=== PATIENT | female | born 1985 | race Caucasian/White ===

== ENCOUNTER 2016-08-01 22:41 | Day surgery (SDC) | payer BC ==
[2016-08-01] MEDS ORDERED: NS 0.9% 1000 ML* 1,000 ML IV ONE (23:51)
[2016-08-02 00:20] LABS: ALT 51 U/L (7-52); AST 22 U/L (13-39); Albumin 4.1 g/dL (3.2-5.2); Alkaline Phosphatase 69 U/L (34-104); Anion Gap 7 mmol/L (2-11); BUN/Creatinine Ratio 22.1 (8-20); Blood Urea Nitrogen 17 mg/dL (6-24); CO2 Carbon Dioxide 26 mmol/L (22-32); Calcium 9.1 mg/dL (8.6-10.3); Chloride 106 mmol/L (101-111); EGFR African American 112.4 (>60); EGFR Non-African American 87.4 (>60); Globulin 3.1 g/dL (2-4); Glucose 105 mg/dL (70-100); Lipase 14 U/L (11.0-82.0); Potassium 4.2 mmol/L (3.5-5.0); Sodium 139 mmol/L (133-145); Total Protein 7.2 g/dL (6.4-8.9)
[2016-08-02] MEDS ORDERED: Iohexol 300* (CONTRAST) 10 ML SDV IV ONE (00:40)
[2016-08-02 00:46] LABS: Hematocrit 40 % (35-47); Hemoglobin 13.3 g/dl (12.0-16.0); Mean Corpuscular HGB Conc 33 g/dl (31-36); Mean Corpuscular Hemoglobin 30 pg (27-31); Mean Corpuscular Volume 89 fL (80-97); Mean Platelet Volume 7 um3 (7.4-10.4); Red Blood Count 4.51 10^6/ul (4.0-5.4); Red Cell Distribution Width 13 % (10.5-15); White Blood Count 14.7 10^3/ul (3.5-10.8)
[2016-08-02] MEDS ORDERED: Ertapenem* 1 GM in NS 0.9% 50 ML* 50 ML IVPB ONE (03:13)
[2016-08-02] MEDS ORDERED: Morphine INJ* 4 MG/ML 1 ML CARPUJECT IV ONE (03:14)
[2016-08-02] MEDS ORDERED: Ondansetron INJ* 2 MG/ML VIAL IV ONE (03:14)
[2016-08-02] MEDS ORDERED: NS 0.9% 50 ML* 100 ML ONE (03:28)
--- NOTE | 2016-08-02 03:31 | ED ---
Destin Dillard Aidan, scribed for Melinda Razouel on 08/01/16 at 2356 . Abdominal Pain/Female - HPI Summary HPI Summary: 30 y/o female presents to the ED with a complaint of acute, constant, moderate ( 5/10), right-sided abdominal pain that began at 1700 today. Pt denies any vomiting. She recently was , had a sea-section 2 months ago, and should be getting her next period again soon. - History of Current Complaint Chief Complaint: EDAbdPain Stated Complaint: RIGHT SIDE ABD PAIN Hx Obtained From: Patient, Family/Manager Assessment ?: No Onset/Duration: Sudden Onset, Lasting Hours - began at 1700 today, Still Present Timing: Constant Severity Initially: Moderate Severity Currently: Moderate Pain Intensity: 5 Pain Scale Used: 0-10 Numeric Location: Discrete At: RUQ, Discrete At: RLQ Radiates: No Character: Other: - not described Aggravating Factor(s): Other: - unknown, however, her RLQ was tender to palpation Alleviating Factor(s): Other: - unknown Associated Signs and Symptoms: Positive: Negative - Risk Factors Ovarian Torsion Risk Factor: Reproductive Age Allergies/Adverse Reactions: Allergies Allergy/AdvReac Type Severity Reaction Status Date / Time No Known Allergies Allergy Verified 05/16/16 01:45 PMH/Surg Hx/FS Hx/Imm Hx Infectious Disease History: No Infectious Disease History: Denies: Traveled Outside the [place] in Last 30 Days - Family History Known Family History: Negative: Diabetes - Social History Occupation: Employed Full-time Lives: With Family Alcohol Use: None Substance Use Type: Reports: None Smoking Status (MU): Never Smoked Tobacco Review of Systems Constitutional: Negative Eyes: Negative ENT: Negative Cardiovascular: Negative Respiratory: Negative Positive: Abdominal Pain Genitourinary: Negative Musculoskeletal: Negative Skin: Negative Neurological: Negative Psychological: Normal All Other Systems Reviewed And Are Negative: Yes Physical Exam Triage Information Reviewed: Yes Vital Signs On Initial Exam: Initial Vitals Temp Pulse Resp BP Pulse Ox 98.1 F 90 16 147/85 100 08/01/16 22:42 08/01/16 22:42 08/01/16 22:42 08/01/16 22:42 08/01/16 22:42 Vital Signs Reviewed: Yes Appearance: Positive: Well-Appearing, No Pain Distress Skin: Positive: Warm, Skin Color Reflects Adequate Perfusion, Dry Head/Face: Positive: Normal Head/Face Inspection Eyes: Positive: EOMI, LISSETH ENT: Positive: Normal ENT inspection Neck: Positive: Supple, Nontender Respiratory/Lung Sounds: Positive: Clear to Auscultation, Breath Sounds Present Cardiovascular: Positive: RRR, Pulses are Symmetrical in both Upper and Lower Extremities Abdomen Description: Positive: Soft. Negative: Nontender - tenderness in the RLQ Bowel Sounds: Positive: Present Musculoskeletal: Positive: Strength/ROM Intact Neurological: Positive: Sensory/Motor Intact, Alert, Oriented to Person Place, Time Psychiatric: Positive: Affect/Mood Appropriate AVPU Assessment: Alert Diagnostics - Vital Signs Vital Signs Temp Pulse Resp BP Pulse Ox 08/01/16 22:42 98.1 F 90 16 147/85 100 - Laboratory Lab Results: Lab Results 08/01/16 08/01/16 Range/Units 23:50 23:50 WBC 14.7 H (3.5-10.8) 10^3/ul RBC 4.51 (4.0-5.4) 10^6/ul Hgb 13.3 (12.0-16.0) g/dl Hct 40 (35-47) % MCV 89 (80-97) fL MCH 30 (27-31) pg MCHC 33 (31-36) g/dl RDW 13 (10.5-15) % Plt Count 280 (150-450) 10^3/ul MPV 7 L (7.4-10.4) um3 Neut % (Auto) 84.1 H (38-83) % Lymph % (Auto) 8.9 L (25-47) % [place] % (Auto) 4.6 (1-9) % Eos % (Auto) 1.8 (0-6) % Baso % (Auto) 0.6 (0-2) % Absolute Neuts (auto) 12.4 H (1.5-7.7) 10^3/ul Absolute Lymphs (auto) 1.3 (1.0-4.8) 10^3/ul Absolute Monos (auto) 0.7 (0-0.8) 10^3/ul Absolute Eos (auto) 0.3 (0-0.6) 10^3/ul Absolute Basos (auto) 0.1 (0-0.2) 10^3/ul Absolute Nucleated RBC 0.01 10^3/ul Nucleated RBC % 0.1 Sodium 139 (133-145) mmol/L Potassium 4.2 (3.5-5.0) mmol/L Chloride 106 (101-111) mmol/L Carbon Dioxide 26 (22-32) mmol/L Anion Gap 7 (2-11) mmol/L BUN 17 (6-24) mg/dL Creatinine 0.77 (0.51-0.95) mg/dL Est GFR ( Amer) 112.4 (>60) Est GFR (Non-Af Amer) 87.4 (>60) BUN/Creatinine Ratio 22.1 H (8-20) Glucose 105 H (70-100) mg/dL Calcium 9.1 (8.6-10.3) mg/dL Total Bilirubin 0.80 (0.2-1.0) mg/dL AST 22 (13-39) U/L ALT 51 (7-52) U/L Alkaline Phosphatase 69 (34-104) U/L Total Protein 7.2 (6.4-8.9) g/dL Albumin 4.1 (3.2-5.2) g/dL Globulin 3.1 (2-4) g/dL Albumin/Globulin Ratio 1.3 (1-3) Lipase 14 (11.0-82.0) U/L Beta HCG, Quant < 0.60 mIU/mL Result Diagrams: 08/01/16 23:50 08/01/16 23:50 Lab Statement: Any lab studies that have been ordered have been reviewed, and results considered in the medical decision making process. Abdominal Pain Fem Course/Dx - Course Course Of Treatment: This is a 30 y/o female with a complaint of right-sided abdominal pain that began today at 1700. She is tender in the RLQ. 2 months ago , she had a sea-section. - Diagnoses Provider Diagnoses: Appendicitis Discharge - Discharge Plan Condition: Good Disposition: ADMITTED TO [facility] Discharge Disposition Comment: Admit to surgery (Dr. Jeffries) Patient Education Materials: Appendicitis (GEN) Referrals: Tyrell Munoz MD [Primary Care Provider] - The documentation as recorded by the Destin lr Aidan accurately reflects the service I personally performed and the decisions made by , Jose Alejandro Razo.
[2016-08-02] MEDS ORDERED: Piperac/Tazob 3.375 gm in NS* 3.375 GM/100 ML BAG IVPB ONE (03:39)
[2016-08-02] MEDS ORDERED: HYDROmorphone INJ* 1 MG/ML CARPUJECT SYRINGE IV SLOW PU ONE (06:54)
--- NOTE | 2016-08-02 08:17 | RAD ---
INDICATION: Right lower quadrant abdominal pain evaluate for appendicitis. COMPARISON: There are no prior studies available for comparison. TECHNIQUE: A CT scan of the abdomen and pelvis was performed with intravenous and oral contrast following intravenous injection of 121 ml of Omnipaque 300 nonionic contrast. Contiguous axial sections were obtained from the lung bases through the symphysis pubis. Images were reconstructed in the coronal and sagittal planes. FINDINGS: There is mild dependent bilateral lower lobe subsegmental atelectasis. No pleural effusion is present. The liver and spleen are mildly enlarged. There liver is decreased in attenuation consistent with fatty infiltration with a more focal area of decreased density in the anterior portion of the left hepatic lobe most consistent with more focal fatty infiltration. No calcified gallstones are seen. The pancreas appears to be within normal limits. The kidneys and adrenal glands are normal in size. There is a solid enhancing mass present within the midportion of the right kidney measuring 2.0 cm in size. No other focal renal abnormalities are seen. The aorta is normal in caliber and demonstrates homogeneous contrast opacification. No significant enlarged retroperitoneal lymph nodes are seen. The stomach, small and large bowel appear nondistended. The appendix is dilated. There are multiple appendicoliths present. The appendix measures 1 cm in diameter. There is abnormal enhancement of the appendiceal wall and stranding in the adjacent mesenteric fat most consistent with acute appendicitis. No abscess is seen. There is a small periumbilical hernia containing fat. The uterus is retroverted and normal in size. There is a 3.1 cm left ovarian cyst. No free intraperitoneal air or fluid is seen. No significant focal osseous abnormality is seen. The results of this exam were called to Dr. Cutler. IMPRESSION: 1. FINDINGS CONSISTENT WITH ACUTE APPENDICITIS. 2. 2 CM RIGHT RENAL MASS, RECOMMEND UROLOGIC CONSULTATION. 3. MILD HEPATOSPLENOMEGALY AND HEPATIC STEATOSIS.
--- NOTE | 2016-08-02 08:34 | HP ---
CC: Dr. Jeffries; [facility]; Dr. Tyrell Munoz HISTORY AND PHYSICAL: DATE OF ADMISSION: 08/02/16 CHIEF COMPLAINT: Abdominal pain. HISTORY OF PRESENT ILLNESS: The patient is a 30-year-old female who started to have crampy abdomina l pain yesterday morning but then it became sharp in the evening and subsequently she presented to [facility] emergency room and the pain has been primarily right to mid lower abdomen. There has been no fev er, no chills, no nausea, no vomiting, no diarrhea. No blood in the stool or urine. There is no re cent accident, injury, or trauma. PAST MEDICAL HISTORY: Reveals section two months ago. Everything was uncomplicated and th e baby is doing well. MEDICATIONS: She is on no regular medications. ALLERGIES: Denies medical allergies. FAMILY HISTORY: Noncontributory. No chronic bowel problems. No bleeding tendencies or anesthesia r eactions. SOCIAL HISTORY: She is . Has a new baby. She is a nonsmoker. Does not use any drugs or il licit substances. 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 REVIEW OF SYSTEMS: Multisystem review is benign. No chest pain, heart pain, angina pain, no bronch itis, emphysema or other lung disease. No diabetes, thyroid, or other endocrine. No major GI histo ry, history, significant for the recent and delivery as noted above. She has no major neuromuscular or psych issues. PHYSICAL EXAMINATION GENERAL: She is well-developed, well-nourished, overweight female, consistent with stated age. VITAL SIGNS: Show temperature of 98.1, blood pressure 140/84, pulse 84 and regular, respirations 16 and unlabored. O2 saturation 98%. HEENT: Head and neck are unremarkable. NECK: Without any adenopathy or thyromegaly. LUNGS: Aerate well and easy without any difficulty. HEART: Regular. ABDOMEN: Obese and soft. There is a well healing Pfannenstiel incision. She has localized tendern ess and rebound to the right lower quadrant. No guarding, no Rovsing's sign, no palpable masses or hernias. EXTREMITIES: Well perfused without edema. SKIN: Warm and well perfused. She is not diaphoretic. She is not jaundiced. LABORATORY DATA: Laboratory studies revealed white blood count 14.7 with a slight left shift, hemo globin 13.3, platelets 280, and electrolytes and renal function, liver function are normal. HCG is negative. I have reviewed her CT scan which shows evidence of dilated appendix with periappendiceal inflammation and a fecalith at the base of the appendix consistent with early acute appendicitis. IMPRESSION: A 30-year-old female with evidence of early acute appendicitis and fecalith in the appe ndix. I discussed this with her and her parents and I recommend laparoscopic appendectomy. They understan d the procedure, the rationale, the risks and the expected recovery as well as alternatives to surge ry and agree to proceed in the fashion outlined, and we will proceed with laparoscopic appendectomy this morning. [id number]/[facility] #: [id number]
[2016-08-02] MEDS ORDERED: Bupivacaine 0.25% EPI 200,000* 30 ML SDV ONE (09:32)
[2016-08-02] MEDS ORDERED: ceFOXitin 2 GM IVPREMIX* 2 GM/50 ML BAG ONE (09:47)
[2016-08-02] MEDS ORDERED: Ondansetron INJ* 2 MG/ML VIAL IV PRN ×2 (09:49→11:01)
[2016-08-02] MEDS ORDERED: HYDROmorphone INJ* 1 MG/ML CARPUJECT SYRINGE IV SLOW PU PRN (09:49)
[2016-08-02] MEDS ORDERED: oxyCODONE/Acetamin 5/325 MG* TAB PO PRN ×2 (09:50→11:01)
[2016-08-02] MEDS ORDERED: Midazolam* 1 MG/ML 5 ML VIAL (5 MG) ONE (09:55)
[2016-08-02] MEDS ORDERED: Dexamethasone IV* 4 MG/ML 1 ML (4 MG) ONE (09:57)
[2016-08-02] MEDS ORDERED: Ondansetron INJ* 2 MG/ML VIAL ONE (09:57)
[2016-08-02] MEDS ORDERED: Succinylcholine* 20 MG/ML 10 ML VIAL ONE (09:57)
[2016-08-02] MEDS ORDERED: Ketorolac INJ* 30 MG/ML 1 ML VIAL ONE (09:57)
[2016-08-02] MEDS ORDERED: fentaNYL* 50 MCG/ML 2 ML VIAL (100 MCG VIAL) ONE (09:57)
[2016-08-02] MEDS ORDERED: Propofol* 10 MG/ML 20 ML BTL IV PUSH ONE (09:58)
[2016-08-02] MEDS ORDERED: Atracurium* 10 MG/ML 10 ML VIAL ONE (09:58)
[2016-08-02] MEDS ORDERED: Neostigmine Methylsulfate* 2 MG/2 ML SYRINGE ONE (10:41)
[2016-08-02] MEDS ORDERED: Glycopyrrolate IV* 0.2 MG/ML 1 ML VIAL ONE (10:41)
[2016-08-02 10:50] LABS: Urine Bacteria 1+ (Absent); Urine Bilirubin Negative (Negative); Urine Glucose Negative (Negative); Urine Nitrite Negative (Negative)
[2016-08-02] MEDS ORDERED: HYDROcodone/ACETAMIN 5-325 MG* 1 TAB PO PRN (11:01)
[2016-08-02] MEDS ORDERED: fentaNYL* 50 MCG/ML 2 ML VIAL (100 MCG VIAL) IV PRN (11:01)
[2016-08-02] MEDS ORDERED: DiMENhydriNATE IV* 50 MG/ML VIAL IV PUSH PRN (11:01)
[2016-08-02] MEDS ORDERED: HYDROmorphone INJ* 1 MG/ML CARPUJECT SYRINGE IV PRN (11:01)
[2016-08-02 11:45] VITALS: BP 101/62
[2016-08-02] MEDS ORDERED: oxyCODONE/Acetamin 5/325 MG* TAB ONE (11:47)
--- NOTE | 2016-08-03 01:04 | OP ---
DATE OF OPERATION: 08/02/16 - [facility] DATE OF : 83 SURGEON: Mario Jeffries MD FIRE EATER: None. ANESTHESIOLOGIST: Dr. Bentley. ANESTHESIA: General anesthetic, local infiltration. PRE-OP DIAGNOSIS: Appendicitis. POST-OP DIAGNOSIS: Appendicitis. OPERATIVE PROCEDURE: Laparoscopic appendectomy. DESCRIPTION OF PROCEDURE: The patient was supine on the operating table. After adequate general anesthetic, compression stockings, Hieu Hugger warmer, intravenous antibiotics, the abdomen was prepped with antiseptic and draped in a sterile fashion. Local infiltrate of anesthesia was administered. A small umbilical incision was created. Blunt port cannula was placed. Insufflation was carried out with carbon dioxide. Additional cannulae 5 mm left lower quadrant, left mid abdomen were placed through small stab wounds under direct vision. The cecum was rotated away from the pelvic side wall and the appendix was noted in the retrocecal position. It had suppurative changes. The base of the appendix was not inflamed. It was readily divided with a hudson load of an EndoGIA stapler. The mesoappendix was then divided using a LigaSure device. The appendix was placed in a retrieval bag and brought out through the umbilical site. Hemostasis was confirmed and there were no undrained collections or additional infection in the area. The cannula removed. Pneumoperitoneum was allowed to escape. Umbilical fascia was closed with 0 Polysorb and skin with 5-0 Polysorb and followed by Ster-Strips. She tolerated the procedure well and was brought to recovery in good condition. No complications. No drains. Pathologic specimen is appendix. Sponge, instrument counts correct. Estimated blood loss is less than 20 mL. CC: Mario Jeffries MD; Dr. Tyrell Munoz, [facility]. * [id number]/[facility] #: [id number] MTDD
== END 2016-08-02 10:14 | disposition home or self-care (01) ==
LOC: ED 22:41 → OR 08-02 10:14
PROVIDERS: ATTEND Surgery
DX: K35.80 Unspecified acute appendicitis (principal); E66.3 Overweight
CPT/HCPCS: 36415; 74177; 80053; 81003; 81015; 83690; 84702; 85025; 87086; 88304; 96374; 99283; A9270-GY; J0330; J0694; J1100; J1170; J1335; J1885; J2250; J2270; J2405; J2543; J2704; J3010; Q9967

== ENCOUNTER 2018-05-02 06:03 | Inpatient (IN) | payer BC ==
[2018-05-02] MEDS ORDERED: ceFOXitin 2 GM IVPREMIX* 2 GM/50 ML BAG ONE (06:32)
[2018-05-02] MEDS ORDERED: Sodium Citrate/Citric Acid* 15 ML UDC ONE (06:32)
[2018-05-02] MEDS ORDERED: Morphine PF AMP (0.5MG/ML)* 5 MG/10 ML AMP ONE (07:58)
[2018-05-02] MEDS ORDERED: Bupivacaine-MPF SPINAL* 7.5 MG/ML - 2ML AMP ONE (08:35)
[2018-05-02] MEDS ORDERED: Lidocaine 2% PF * 5 ML VIAL ONE (08:36)
[2018-05-02] MEDS ORDERED: Phenylephrine IV* 40 MCG/ML 10 ML SYRINGE ONE (08:36)
[2018-05-02] MEDS ORDERED: EPHEDrine (Pressors)* 50 MG/ML VIAL ONE (08:36)
[2018-05-02] MEDS ORDERED: OXYTOCIN* 10 UNITS/ML 1 ML VIAL ONE (08:46)
[2018-05-02] MEDS ORDERED: fentaNYL* 50 MCG/ML 2 ML VIAL (100 MCG VIAL) IV PRN (09:00)
[2018-05-02] MEDS ORDERED: Ondansetron INJ* 2 MG/ML VIAL IV PRN ×2 (09:00→09:01)
[2018-05-02] MEDS ORDERED: Naloxone* 0.4 MG/ML 1 ML VIAL IV PRN ×2 (09:00→09:01)
[2018-05-02] MEDS ORDERED: Scopolamine 1.5 mg* PATCH TRANSDERM PRN (09:01)
[2018-05-02] MEDS ORDERED: diPHENhydraMINE IV* 50 MG/ML 1 ml VIAL (BENADRYL) IV PRN (09:01)
[2018-05-02] MEDS ORDERED: DiMENhydriNATE IV* 50 MG/ML VIAL IV PUSH PRN (09:01)
[2018-05-02] MEDS ORDERED: Nalbuphine* 10 MG/ML 1 ML VIAL IV PRN (09:01)
[2018-05-02] MEDS ORDERED: oxyCODONE/Acetamin 5/325 MG* TAB PO PRN (09:01)
[2018-05-02] MEDS ORDERED: Ketorolac INJ* 30 MG/ML 1 ML VIAL ONE (09:20)
[2018-05-02] MEDS ORDERED: Witch Hazel PAD* JAR TOPICAL PRN (09:59)
[2018-05-02] MEDS ORDERED: Oxytocin in LR* 20 UNITS/1,000 ML BAG IVPB ONE (10:04)
[2018-05-02] MEDS: Simethicone TAB* 80 MG TAB.CHEW PO SCH ×3 (15:41→20:19)
[2018-05-02] MEDS: Docusate CAP* 100 MG PO SCH ×2 (15:41→20:19)
[2018-05-02] MEDS: Ketorolac INJ* 30 MG/ML 1 ML VIAL IV PRN ×2 (15:48→23:44)
[2018-05-02] MEDS: Enoxaparin(*) 40 MG/0.4 ML SYR SUBCUT SCH (20:19)
[2018-05-03] MEDS ORDERED: oxyCODONE/Acetamin 5/325 MG* TAB PO PRN
[2018-05-03] MEDS ORDERED: Acetaminophen TAB* 325 MG PO PRN
[2018-05-03] MEDS: oxyCODONE/Acetamin 5/325 MG* TAB PO PRN ×3 (02:51→17:53)
[2018-05-03 07:03] LABS: ABS Basophils 0.1 10^3/ul (0-0.2); ABS Eosinophils 0.1 10^3/ul (0-0.6); ABS Lymphocytes 1.3 10^3/ul (1.0-4.8); ABS Monocytes 0.5 10^3/ul (0-0.8); ABS Neutrophils 4.9 10^3/ul (1.5-7.7); ABS Nucleated RBC 0 10^3/ul; Eosinophil % 1.9 % (0-6); Hematocrit 32 % (35-47); Hemoglobin 10.9 g/dl (12.0-16.0); Lymphocyte % 18.9 % (25-47); Mean Corpuscular HGB Conc 34 g/dl (31-36); Mean Corpuscular Hemoglobin 30 pg (27-31); Mean Corpuscular Volume 89 fL (80-97); Mean Platelet Volume 8.3 um3 (7.4-10.4); Nucleated Red Blood Cells % 0; Platelet Count 161 10^3/ul (150-450); Red Blood Count 3.62 10^6/ul (4.00-5.40); Red Cell Distribution Width 14 % (10.5-15); White Blood Count 6.8 10^3/ul (3.5-10.8)
[2018-05-03] MEDS: Docusate CAP* 100 MG PO SCH ×3 (08:16→20:33)
[2018-05-03] MEDS: Simethicone TAB* 80 MG TAB.CHEW PO SCH ×4 (08:16→20:33)
[2018-05-03] MEDS: Ibuprofen TAB* 600 MG PO PRN ×3 (08:16→20:33)
[2018-05-03] MEDS ORDERED: Ferrous Gluconate TAB* 324 MG TAB PO SCH (09:00)
--- NOTE | 2018-05-03 09:41 | OP ---
DATE OF OPERATION: 05/02/18 - ROOM #117 DATE OF : [birth year] SURGEON: Ernestina Spann MD FOREST MANAGEMENT PROFESSOR: Anca Crawford CNM ANESTHESIOLOGIST: Dr. Bentley. ANESTHESIA: Spinal. PRE-OP DIAGNOSIS: 39 weeks gestation with history of previous and morbid obesity. POST-OP DIAGNOSIS: 39 weeks gestation with history of previous and morbid obesity. OPERATIVE PROCEDURE: Repeat low transverse section. INDICATIONS: This patient is a 32-year-old 2, para 1, who presented today for a scheduled repeat section. She was extensively counseled and consent was signed. FINDINGS: Normal-appearing uterus, fallopian tubes, and ovaries. Delivery is productive of a 7 pounds 1 ounce male infant with Apgars of 9 and 9. Time of delivery was 0856. Due to the shape of the uterus, it could not be exteriorized. ESTIMATED BLOOD LOSS: 800 cc. URINE OUTPUT: 350 cc. IV FLUIDS: 2900 cc Lactated Ringer's. MATERIALS TO LAB: Cord blood. COMPLICATIONS: None. DESCRIPTION OF PROCEDURE: The risks, benefits, and alternatives were described to the patient, and informed consent was obtained. The patient was taken to the operating room with IV running, where spinal anesthesia was induced and found to be adequate. The patient was prepped and draped in normal sterile fashion in the dorsal supine position with a leftward tilt. A Pfannenstiel skin incision was made with a scalpel through the patient's previous incision. This was carried down to the underlying fascia using the scalpel. The fascia was scored in the midline, and the incision was extended using Mednoza scissors. The fascia was dissected off the underlying rectus muscles using blunt and sharp dissection. The rectus muscles were in the midline using dissection with a Wanda clamp. The peritoneum was then entered bluntly. A bladder blade was placed. A bladder flap was created sharply using Metzenbaum scissors. A low transverse uterine incision was then made with the scalpel. This was carried down to the amniotic membranes. The membranes were then ruptured, productive of clear fluid. The uterine incision was extended using blunt traction. The head was elevated to the level of the incision, and, with fundal pressure, the head delivered without difficulty. The shoulders then were also both delivered and the body followed. The infant had excellent tone and cried immediately on delivery. The cord was doubly clamped and cut. The infant was then handed to the awaiting entry level staff accountant. Cord blood was collected. The placenta was delivered with manual extraction. The uterus was then exteriorized and cleared of all clots and debris. The uterine incision was then reapproximated using 0 Polysorb in a running-locked fashion. A second layer of imbricating 0 Polysorb sutures was then also placed for good hemostasis. The posterior cul-de-sac was irrigated with saline. The uterus was then returned to the abdomen. The incision was reinspected and still noted to be hemostatic. The peritoneum was closed with 2-0 chromic in a running fashion. The fascia was closed with 0 Polysorb in a running fashion. The subcutaneous tissues were copiously irrigated and made hemostatic using the Bovie. The subcutaneous tissues were then reapproximated using 2-0 chromic in interrupted sutures. The skin was then closed with . A sterile bandage was then placed over the incision. The patient tolerated the procedure well. Sponge, lap, and needle counts were correct x2. [id number]/[facility] #: [id number] [facility] CENTER[facility]aimie
[2018-05-03] MEDS: Enoxaparin(*) 40 MG/0.4 ML SYR SUBCUT SCH (20:23)
[2018-05-04] MEDS: oxyCODONE/Acetamin 5/325 MG* TAB PO PRN ×2 (00:58→08:11)
[2018-05-04] MEDS: Ibuprofen TAB* 600 MG PO PRN (06:51)
[2018-05-04] MEDS: Simethicone TAB* 80 MG TAB.CHEW PO SCH (08:11)
[2018-05-04] MEDS: Docusate CAP* 100 MG PO SCH (08:12)
[2018-05-04 08:38] VITALS: BP 122/64
[2018-05-05] MEDS ORDERED: Scopolamine PATCH Remove* 1 NOTE MISC PATCH OFF PRN (09:02)
== END 2018-05-04 12:20 | disposition home or self-care (01) | DRG 540 ==
LOC: MCHOB 06:03
PROVIDERS: ADMIT Obstetrics & Gynecology; ATTEND Obstetrics & Gynecology
PROC: 10D00Z1 Extraction of Products of Conception, Low, Open Approach (ICD-10-PCS; principal; 2018-05-02 07:45)
DX: O34.211 Maternal care for low transverse scar from previous cesarean delivery (principal); Z68.41 Body mass index [BMI] 40.0-44.9, adult; O99.214 Obesity complicating childbirth; E66.01 Morbid (severe) obesity due to excess calories; Z3A.39 39 weeks gestation of pregnancy; Z37.0 Single live birth
CPT/HCPCS: 36415; 85025; A9270-GY; J0694; J1200; J1240; J1650; J1885; J2590

== ENCOUNTER 2023-01-14 05:30 | Inpatient (IN) ==
[2023-01-14] MEDS ORDERED: Sodium Citrate/Citric Acid LIQ 15 ML UDC PO ONE (06:00)
[2023-01-14] MEDS ORDERED: ceFOXitin 3 GM in NS 0.9% 100 ml BAG 100 ML IVPB ONE (06:00)
[2023-01-14] MEDS ORDERED: Lactated Ringers 1000 ml BAG 1,000 ML IV ONE (06:00)
[2023-01-14] MEDS ORDERED: Lactated Ringers 1000 ml BAG 1,000 ML IV SCH ×3 (06:00→10:00)
[2023-01-14] MEDS ORDERED: Buffered Lidocaine 1% SYRIN 1 ml INTRADERM ONE ×2 (06:00)
[2023-01-14 06:36] LABS: ABS Basophils 0.1 10^3/uL (0.0-0.1); ABS Eosinophils 0.1 10^3/uL (0.0-0.5); ABS Lymphocytes 1.5 10^3/uL (1.0-4.8); ABS Monocytes 0.5 10^3/uL (0.0-0.9); ABS Neutrophils 5.1 10^3/uL (1.5-7.6); Hemoglobin 12.6 g/dL (11.5-14.3); Lymphocyte % 20.6 %; Mean Corpuscular Hemoglobin 30.8 pg (27-33); Mean Corpuscular Hgb Conc 34.2 g/dL (31-36); Mean Platelet Volume 9.1 fL (7.5-11.2); Nucleated Red Blood Cells % 0.1 /100 WBC (0.0-0.4); Platelet Count 188 10^3/uL (150-450); Red Blood Count 4.11 10^6/uL (3.63-4.92); Red Cell Distribution Width 13.9 % (12-17); White Blood Count 7.2 10^3/uL (3.8-11.8)
[2023-01-14] MEDS ORDERED: Oxytocin 10 UNITS/ML 1 ML VIAL ONE (07:40)
[2023-01-14] MEDS ORDERED: Morphine PF AMP (0.5MG/ML) 5 MG/10 ML AMP ONE (07:40)
[2023-01-14] MEDS ORDERED: Acetaminophen IV 1 GM/100ML 1,000 MG/100 ML BAG IV ONE (07:40)
[2023-01-14] MEDS: Oxytocin in LR 20,000 MILLI.UNIT/1,000 ML BAG IV SCH ×2 (08:50→13:03)
[2023-01-14 09:00] LABS: Urine Appearance Clear; Urine Bilirubin Negative (Negative); Urine Blood 1+ (Negative); Urine Color Straw; Urine Glucose Negative (Negative); Urine Ketones Trace (Negative); Urine Nitrite Negative (Negative); Urine Protein Negative (Negative); Urine Specific Gravity 1.006 (1.002-1.030); Urine Urobilinogen Negative (Negative)
[2023-01-14 09:02] LABS: Urine Bacteria Absent (Absent); Urine Red Blood Cell Trace(0-2/hpf) (Absent); Urine White Blood Cell Trace(0-5/hpf) (Absent)
[2023-01-14 09:13] LABS: Urine Benzodiazepine Screen None Detected (None Detect); Urine Cannabinoids Screen None Detected (None Detect); Urine Opiates Screen None Detected (None Detect)
[2023-01-14] MEDS ORDERED: Witch Hazel PAD JAR TOPICAL PRN (09:38)
[2023-01-14] MEDS ORDERED: Glycerin ADULT 2.4 gm SUPP PR PRN (09:38)
[2023-01-14] MEDS ORDERED: Dibucaine 1% OINT 28.35 GM TUBE PR PRN (09:38)
[2023-01-14] MEDS ORDERED: Acetaminophen IV 1 GM/100ML 1,000 MG/100 ML BAG IV PRN (09:39)
[2023-01-14] MEDS ORDERED: Metoclopramide 5 MG/ML VIAL (10 mg) IV PRN (09:39)
[2023-01-14] MEDS ORDERED: Ondansetron 4 mg VIAL 2 MG/ML 2 ml VIAL IV PRN (09:39)
[2023-01-14] MEDS ORDERED: Naloxone 0.4 mg VIAL 0.4 mg/ml 1 ml VIAL IV PUSH PRN (09:39)
[2023-01-15 07:01] LABS: ABS Eosinophils 0.1 10^3/uL (0.0-0.5); ABS Lymphocytes 0.9 10^3/uL (1.0-4.8); ABS Monocytes 0.5 10^3/uL (0.0-0.9); ABS Neutrophils 7.2 10^3/uL (1.5-7.6); Eosinophil % 1.3 %; Hematocrit 31.8 % (35-45); Hemoglobin 10.9 g/dL (11.5-14.3); Lymphocyte % 10.3 %; Mean Corpuscular Hemoglobin 31.4 pg (27-33); Mean Corpuscular Hgb Conc 34.4 g/dL (31-36); Mean Corpuscular Volume 91.4 fL (80-97); Mean Platelet Volume 8.2 fL (7.5-11.2); Platelet Count 155 10^3/uL (150-450); Red Blood Count 3.48 10^6/uL (3.63-4.92); Red Cell Distribution Width 13.9 % (12-17); White Blood Count 8.7 10^3/uL (3.8-11.8)
[2023-01-16 07:56] VITALS: BP 105/64
== END 2023-01-16 13:00 | disposition home or self-care (01) | DRG 540 ==
LOC: MCHOB 05:30
PROVIDERS: ADMIT Obstetrics & Gynecology; ATTEND Obstetrics & Gynecology